=== PATIENT | female | born 1945 | race American Indian/Alaskan Native ===

== ENCOUNTER 2017-09-10 09:00 | Day surgery (SDC) | payer MEDICARE, OTHER ==
[~2017-09-10] VITALS: Ht 157.5 cm; Wt 62.6 kg
--- NOTE | ~2017-09-10 | OR ---
[facility] [address] [place], [place] [address] Draft DATE OF OPERATION: 09/10/2017 SURGEON: Alex Martin MD PREOPERATIVE DIAGNOSIS: Inferior turbinate hypertrophy. POSTOPERATIVE DIAGNOSIS: Inferior turbinate hypertrophy. PROCEDURE: Cautery bilateral inferior turbinate submucosal. ANESTHESIA: General LMA, Dhruv GOODWIN. PREOPERATIVE HISTORY: Melissa is a 72-year-old lady with a long history of sinus problems. She had extensive sinusotomies done by Dr. Barrientos 12 years ago, currently having lots of congestion, postnasal drainage, facial discomfort, unresponsive to conservative medications. Sinus CT was negative. She has had noted to have inferior turbinate hypertrophy in the office and on the CAT scan. This was confirmed and she is being taken to the operating room for the above-mentioned procedures. OPERATIVE PROCEDURE AND FINDINGS: After informed consent, the patient was taken to the operating room, placed in the supine position, where general LMA anesthesia was induced. The patient and procedure were verified. The patient received preoperative intranasal oxymetazoline and intravenous Ancef. Headlight speculum exam of the nasal cavity showed nicely decongested inferior turbinates and the inferior turbinates were then cauterized with a long handle needle point cautery starting on the left on the medial and inferior surface beginning anteriorly all the way back posteriorly. Good shrinkage in size of the inferior turbinate was obtained. Minimal bleeding. Same procedure on the right. Packing was placed an equal amount of Merocel trimmed, coated with Neosporin tied anteriorly over a pad. The pharynx suctioned clear blood secretions. The patient was then awakened, extubated, transported to recovery room in good condition. No complications. BLOOD LOSS: Minimal. SPECIMEN: No specimen. DRAINS: No drains. PACKING: One piece of Merocel each nostril. PATIENT NAME: MELISSA GUILLEN OPERATIVE REPORT DATE OF : 47 PHYSICIAN: ALEX MARTIN MD REPORT #: [id number] REPORT IS CONFIDENTIAL AND NOT TO BE RELEASED WITHOUT AUTHORIZATION [address] [address] Draft Alex Martin MD GC/MEET /[id number] PATIENT NAME: MELISSA GUILLEN OPERATIVE REPORT DATE OF : 47 PHYSICIAN: ALEX MARTIN MD REPORT #: [id number] REPORT IS CONFIDENTIAL AND NOT TO BE RELEASED WITHOUT AUTHORIZATION
[~2017-09-10 09:00] MED LIST: AMLODIPINE BESY10 MG PO; ASPIR-LOW81 MG PO; BACTRIM DS TAB1 EACH PO; CEPHALEXIN500 MG PO; FENOFIBRATE160 MG PO; FLAX SEED OIL1000 MG PO; HYDROCODON-ACE1 EA10 PO; HYDROCODON-ACE1 EA11 PO; LEVOTHYROXINE50 MCG PO; LOSARTAN POTASS50 MG PO; MORPHINE SULFAT30 M2 PO; OMEGA 3 1,0001 EACH PO; VITAMIN D32000 UNI1 PO
--- NOTE | 2017-09-10 11:55 | NUR ---
09/10/17 1155 Lisbeth Terrell 1143 - PT ARRIVED TO PACU. OPA IN PLACE.
[2017-09-10] MEDS ORDERED: NORCO 5-325 TA1 EACH PO (12:51)
--- NOTE | 2017-09-10 17:53 | NUR ---
1350: PATIENT ASSISTED UP TO BATHROOM. GAIT STEADY. VOID WITHOUT DIFFICULTY. GAIT STEADY BACK TO ROOM. PATIENT DRESSED INDEPENDENTLY. IV DC'D WNL. TIP INTACT. DRESSING APPLIED. 1405: PATIENT DISCHARGED TO HOME VIA WHEELCHAIR WITH .
== END 2017-09-10 14:05 | disposition home or self-care (01) ==
LOC: DS 09:00 → OPS 09:00 → DS 10:15 → OPS 14:05
PROVIDERS: Otolaryngology
PROC: 095L7ZZ Destruction of Nasal Turbinate, Via Natural or Artificial Opening (ICD-10-PCS; principal; 2017-09-10 10:15)
DX: J34.3 Hypertrophy of nasal turbinates (principal); I10 Essential (primary) hypertension; E03.9 Hypothyroidism, unspecified; G89.29 Other chronic pain; M54.5 Low back pain; E78.00 Pure hypercholesterolemia, unspecified; J30.9 Allergic rhinitis, unspecified; Z88.0 Allergy status to penicillin; Z88.8 Allergy status to other drugs, medicaments and biological substances; Z90.89 Acquired absence of other organs; Z90.710 Acquired absence of both cervix and uterus; Z96.651 Presence of right artificial knee joint; Z98.890 Other specified postprocedural states
CPT/HCPCS: 00160; J0690; J1100; J1885; J2250; J2405; J2704; J2765; J3010; J7120

== ENCOUNTER 2020-08-23 20:10 | Emergency (ER) | payer MEDICARE, OTHER ==
[~2020-08-23] VITALS: Ht 157.5 cm; Wt 63.5 kg
[~2020-08-23 20:10] MED LIST changes: +ASPIRIN EC325 MG PO; +FOSAMAX70 MG PO; +HEALTHYLAX17 GM PO; +NORCO 5-325 TA1 EACH PO; +OXYCODONE HCL5 MG PO; +SENNA LAX8.6 MG PO
[2020-08-23] MEDS ORDERED: HYDROCODON-ACE1 EA10 PO (20:33)
[2020-08-23] MEDS ORDERED: DICLOFENAC SODI75 MG PO (21:43)
== END 2020-08-23 22:35 | disposition home or self-care (01) ==
LOC: ED 20:10
DX: M25.462 Effusion, left knee (principal); E03.9 Hypothyroidism, unspecified; I10 Essential (primary) hypertension; E78.5 Hyperlipidemia, unspecified; Z87.891 Personal history of nicotine dependence; Z88.0 Allergy status to penicillin; Z88.8 Allergy status to other drugs, medicaments and biological substances; Z91.018 Allergy to other foods; Z79.899 Other long term (current) drug therapy
CPT/HCPCS: 73560; 85025; 85651; 86140; 99283-25

== ENCOUNTER 2022-10-03 05:35 | Day surgery (SDC) | payer MEDICARE, OTHER ==
[~2022-10-03] VITALS: Ht 157.5 cm; Wt 75.0 kg
[~2022-10-03 05:35] MED LIST changes: +D3 DOTS50 MCG PO; +DICLOFENAC SODI75 MG PO; +MAGNESIUM400 M1 PO; +SINGULAIR10 MG PO
[2022-10-03] MEDS ORDERED: AMLODIPINE BES2.5 MG PO (05:54)
[2022-10-03] MEDS ORDERED: NORVASC10 MG PO (05:57)
[2022-10-03] MEDS ORDERED: XARELTO10 MG PO (08:39)
[2022-10-03] MEDS ORDERED: OXYCODONE HCL5 MG PO (08:40)
--- NOTE | 2022-10-03 08:42 | NUR ---
10/03/22 0842 Winter Bonilla 1187-PATIENT ARRIVED TO PACU ON 6L MASK RR EVEN. SEMI FOWLERS POSITION. PATIENT REACTIVE TO VERBAL STIMULI OPENING EYES DENIES PAIN OR NAUSEA. REMAINS DROWSY AND DOZES BACK TO SLEEP. DRESSING TO LEFT KNEE CDI. GOOD CAP REFILL AND WARMTH TO TOES. PALPABLE PEDAL PULSE. CRYO CUFF TO LEFT KNEE. SR. IVF INFUSING
--- NOTE | 2022-10-03 09:32 | NUR ---
0920 PT RETURNS TO DAY SURGERY AWAKE AND ALERT REPORTS DISCOMFORT TO LT KNEE "BUT NOT REALY PAINFUL". WATER GIVEN PT TOLERATES WELL. WARM BLANKETS AND FORD HUGGER GIVEN CALL LIGHT WITH IN REACH.
--- NOTE | 2022-10-03 10:09 | NUR ---
1000 PT UP TO COMMOD AT BED SIDE WITH ASSIST. SHE WAS ABLE TO VOID 600ML OF CLEAR YELLOW URINE. BEDDING WAS WET, CHANGED COMPLETE BEDDING. PT HELPED BACK INTO BED WARM BLANKETS GIVEN CALL LIGHT WITHIN REACH. PT EATING CRACKERS AND DRINKING WATER TOLERATES WELL. IV SALINE LOCKED. CRYO CUFF PLACED BACK ON LT KNEE. AT BEDSIDE.
--- NOTE | 2022-10-03 10:40 | NUR ---
PT REPORT PAIN 5/10 SHE STATES ITS TOLERABLE
--- NOTE | 2022-10-03 11:11 | NUR ---
PT UP TO COMMOD WITH ASSIST. SHE VOIDED 550ML OF CLEAR YELLOW URINE. PT HELPED BACK INTO BED. CRYO CUFF PLACED BACK ON LT KNEE. WARM BLANKETES GIVEN. CALL LIGHT WITHIN REACH
--- NOTE | 2022-10-03 11:49 | NUR ---
PHYSICAL THERAPY HERE TO WORK WITH PT, PT REPORTS PAIN 6/10 OXYCODONE GIVEN.
--- NOTE | 2022-10-03 12:32 | NUR ---
PT BACK FROM PHYSICAL THERAPY SHE DID WELL. SILVINA REPORTS SHE IS CLEARED TO GO HOME. PT EATING LUNCH SANDWITCH AND SOUP TOLERATES WELL. REPORTS PAIN IS STILL 8/10. ICE BACK ON LT KNEE
--- NOTE | 2022-10-03 13:18 | NUR ---
PT REPORTS PAIN IS 4/10 SHE IS MORE COMFORTABLE. SHE IS RESTING, WATCHING TV WITH HER .
--- NOTE | 2022-10-03 14:06 | NUR ---
1330 PT REPORTS READINESS TO GO HOME, DISCHARGE INSTRUCTIONS GIVEN TO PT AND BOTH VOICED UNDERSTANDING. SHE DRESSED WITH MINIMAL HELP, SHE REPORTS PAIN IS STILL MILD 01/28,
--- NOTE | 2022-10-05 07:30 | OR ---
[facility] [address] [place], [place] [address] Signed DATE OF OPERATION: 10/03/2022 SURGEON: Gloria Yuen MD PREOPERATIVE DIAGNOSIS: Hemarthrosis, chronic, left knee. POSTOPERATIVE DIAGNOSIS: Hemarthrosis, chronic, left knee. PROCEDURE PERFORMED: Revision of left total knee arthroplasty, tibial component with poly exchange. TIGHTENER: Sangeeta Salcido PA-C. Sangeeta was present and critical for all portions of procedure. ANESTHESIA: Spinal. BLOOD LOSS: 125 mL. TOURNIQUET TIME: Zero. IMPLANTS: 13 mm polyethylene. BRIEF HISTORY: Melissa is a 77-year-old female who underwent a total knee arthroplasty number of years ago. She developed a painful hemarthrosis over the last year and half or so. Repeat aspiration showed no evidence of infection as did lab work. recommended poly exchange to tighten up her knee and perhaps this would stop the synovial injury that he suspected was causing this. Risks and benefits of this were discussed with her. Once she was cleared medically, she was taken to the operating room. After adequate anesthesia she was placed on operating table. All downside pressure points well padded. The left leg was placed in well-padded proximal thigh tourniquet and prepped and draped in a standard sterile fashion. The prior incision was marked out and the knee was prepped again and left assist for 3 minutes. The prior incision was then incised Electronically Signed By: GLORIA YUEN MD 10/05/22 0730 PATIENT NAME: MELISSA GUILLEN OPERATIVE REPORT DATE OF : 47 REPORT #: [id number] PHYSICIAN: GLORIA YUEN MD PCP: STACEY NOWAK MD REPORT IS CONFIDENTIAL AND NOT TO BE RELEASED WITHOUT AUTHORIZATION [facility] [address] [place], [place] [address] Signed longitudinally and carried through skin and subcutaneous tissue. All bleeders were cauterized as we went. A mid vastus approach was undertaken and the MCL was elevated around the posteromedial corner. All bleeders again were cauterized. The infrapatellar fat pad and scar tissue were removed carefully to protect the patellar tendon. This allowed good visualization of the poly. She was a little bit loose. There was extensive hemosiderin staining of the synovium throughout. No active bleeders were noted. The polyethylene was then removed and back of the knee was visualized. There was a large synovial shelf in the posteromedial aspect of the knee that was interposed between the polyethylene and the femoral component. This was removed sharply. The back of the knee was then cauterized gently using the Aqua Mantis as was the synovium in the intercondylar notch. The posterior lateral compartment showed no significant shells or soft tissue injury. No active bleeders were encountered during the entire operation. The knee was then trialed first with a 12 and a 13 mm polyethylene. The 13 mm polyethylene fit quite nicely with good stability. We then irrigated the knee with 2 L normal saline soaked with IrriSept for 10 minutes and then cleansed all metal surfaces with hydrogen peroxide. We then pulse lavaged with another L of normal saline. The periarticular soft tissues were injected with 100 mL ropivacaine Toradol mixture. The 13 mm polyethylene was snapped into position and locked. Again, the knee was taken through range of motion and found to be quite stable. The patella tracked well. The On-Q pain pump was percutaneously placed into the adductor canal from the suprapatellar pouch. The arthrotomy was then closed using #2 Stratafix, subcutaneous tissue with 0-Quill and the skin with kevin. The wound was dressed with Acticoat 7 dressing, ABDs and Lorne wrap. She tolerated the procedure well. All sponge, needle, and instrument counts were correct. Gloria Yuen MD BA/MODL /[id number] Copies: ~ Electronically Signed By: GLORIA YUEN MD 10/05/22 0730 PATIENT NAME: MELISSA GUILLEN OPERATIVE REPORT DATE OF : 47 REPORT #: [id number] PHYSICIAN: GLORIA YUEN MD PCP: STACEY NOWAK MD REPORT IS CONFIDENTIAL AND NOT TO BE RELEASED WITHOUT AUTHORIZATION
== END 2022-10-03 13:55 | disposition home or self-care (01) ==
LOC: DS 05:35
PROVIDERS: ATTEND Specialist
PROC: 0SUU09Z Supplement Left Knee Joint, Femoral Surface with Liner, Open Approach (ICD-10-PCS; 2022-10-03)
PROC: 3E0T3BZ Introduction of Anesthetic Agent into Peripheral Nerves and Plexi, Percutaneous Approach (ICD-10-PCS; 2022-10-03)
PROC: 0SPD09Z Removal of Liner from Left Knee Joint, Open Approach (ICD-10-PCS; principal; 2022-10-03 06:45)
DX: M25.062 Hemarthrosis, left knee (principal)
CPT/HCPCS: 64447; 76942; 97161; C1776; J0690; J1100; J1885; J2001; J2250; J2405; J2704; J2795; J7121